=== PATIENT | female | born 1955 | race African-American/Black ===

== ENCOUNTER 2019-06-17 05:52 | Inpatient (IN) | payer OTHER, BC ==
[2019-06-09 10:27] VITALS: BMI 34.7
[~2019-06-17 05:52] MED LIST: CEFAZOLIN 2 GM in DEXTROSE 5%-WATER - 50 ML IVPB ONE; TRANEXAMIC ACID 1000 MG/10 ML VIAL IVPUSH ONE
[2019-06-17] MEDS ORDERED: BUPIVACAINE HCL/PF 0.5% (5 MG/ML) 30 ML VIAL IJ ONE ×2 (06:48→08:21)
[2019-06-17] MEDS ORDERED: EPINEPHrine/PF 1 MG/1 ML (1:1,000) AMPULE ONE ×3 (06:48→08:21)
[2019-06-17] MEDS ORDERED: MIDAZOLAM HCL 2 MG/2 ML SINGLE DOSE VIAL ONE ×3 (06:48→08:44)
[2019-06-17] MEDS ORDERED: oxyCODONE HCL 10 MG SUSTAINED ACTING TABLET ONE (06:58)
[2019-06-17] MEDS ORDERED: VANCOMYCIN 1,250 MG in DEXTROSE 5%-WATER - 250 ML IVPB ONE (06:58)
[2019-06-17] MEDS ORDERED: PROPOFOL 20 ML ONE ×6 (07:06→14:26)
[2019-06-17] MEDS ORDERED: SUCCINYLCHOLINE CHLORIDE 200 MG/10 ML SYRINGE ONE (07:06)
[2019-06-17] MEDS ORDERED: VANCOMYCIN 1,000 MG VIAL (RESTRICTED TO ID ONLY) ONE (07:07)
[2019-06-17] MEDS ORDERED: BUPIVACAINE HCL/PF 0.5% (5MG/ML) 10 ML VIAL ONE ×2 (07:09→09:09)
[2019-06-17] MEDS: oxyCODONE HCL 10 MG SUSTAINED ACTING TABLET PO ONE ×2 (07:30→16:59)
--- NOTE | 2019-06-17 07:45 | HP ---
History & Physical Update - History History: No Change - Physical Physical: No Change - Assessment Assessment: No Change - Plan Plan: No Change (since visit on 05/27/19 with PCP)
[2019-06-17] MEDS ORDERED: HEPARIN NA (PORCINE) 5,000 UNITS/ML 1ML VIAL ONE (08:03)
[2019-06-17] MEDS ORDERED: ceFAZolin SODIUM 1 GM VIAL ONE ×2 (09:02→12:39)
[2019-06-17] MEDS ORDERED: TRANEXAMIC ACID 1000 MG/10 ML VIAL ONE ×2 (09:02→10:17)
[2019-06-17] MEDS ORDERED: ePHEDrine SULFATE 50 MG/1 ML AMPULE ONE (09:26)
[2019-06-17] MEDS ORDERED: ALBUTEROL SO4 8 GM HFA INHALER IH PRN (12:51)
--- NOTE | 2019-06-17 12:54 | HP ---
CHIEF COMPLAINT: PCP: HISTORY OF PRESENT ILLNESS: ER course was notable for: (1) (2) (3) Recent Travel: PAST MEDICAL HISTORY: PAST SURGICAL HISTORY: Social History: Smoking: Alcohol: Drugs: Allergies No Known Drug Allergies Allergy (Verified 06/09/19 10:11) HOME MEDICATIONS: Home Medications Medication Instructions Recorded Albuterol Sulfate Inhaler - 2 inh PO Q4H PRN 06/09/19 [Ventolin Hfa Inhaler -] Atorvastatin Ca [Lipitor] 20 mg PO DAILY 06/09/19 Calcium Carbonate/Vitamin D3 1 each PO DAILY 06/09/19 [Calcium 500 + Vit D3 400 Tab] Fluticasone/Vilanterol [Breo 1 each IH BID 06/09/19 Ellipta 100-25 Mcg INH] Furosemide 20 mg PO DAILY 06/09/19 Gabapentin 300 mg PO BID 06/09/19 Ibuprofen 200 mg PO ASDIR PRN 06/09/19 Losartan/Hydrochlorothiazide 1 each PO DAILY 06/09/19 [Losartan-Hctz 100-25 mg Tab] Omalizumab [Xolair] 300 mg SQ MONTHLY 06/09/19 traZODone HCL [Trazodone HCl] 100 mg PO HS 06/09/19 REVIEW OF SYSTEMS CONSTITUTIONAL: Absent: fever, chills, diaphoresis, generalized weakness, malaise, loss of appetite, weight change HEENT: Absent: rhinorrhea, nasal congestion, throat pain, throat swelling, difficulty swallowing, mouth swelling, ear pain, eye pain, visual changes CARDIOVASCULAR: Absent: chest pain, syncope, palpitations, irregular heart rate, lighth eadedness, peripheral edema RESPIRATORY: Absent: cough, shortness of breath, dyspnea with exertion, orthopnea, wheezing, stridor, hemoptysis GASTROINTESTINAL: Absent: abdominal pain, abdominal distension, nausea, vomiting, diarrhea, constipation, melena, hematochezia GENITOURINARY: Absent: dysuria, frequency, urgency, hesitancy, hematuria, flank pain, genital pain MUSCULOSKELETAL: Absent: myalgia, arthralgia, joint swelling, back pain, neck pain SKIN: Absent: rash, itching, pallor HEMATOLOGIC/IMMUNOLOGIC: Absent: easy bleeding, easy bruising, lymphadenopathy, frequent infections ENDOCRINE: Absent: unexplained weight gain, unexplained weight loss, heat intolerance, cold intolerance NEUROLOGIC: Absent: headache, focal weakness or paresthesias, dizziness, unsteady gait, seizure, mental status changes, bladder or bowel incontinence PSYCHIATRIC: Absent: anxiety, depression, suicidal or homicidal ideation, hallucinations. PHYSICAL EXAMINATION Vital Signs - 24 hr 06/17/19 06:52 Temperature 98.8 F Pulse Rate 80 Respiratory 18 Rate Blood Pressure 141/94 GENERAL: Awake, alert, and fully oriented, in no acute distress. HEAD: Normal with no signs of trauma. EYES: Pupils equal, round and reactive to light, extraocular movements intact, sclera anicteric, conjunctiva clear. No lid lag. EARS, NOSE, THROAT: Ears normal, nares patent, oropharynx clear without exudates. Moist mucous membranes. NECK: Normal range of motion, supple without lymphadenopathy, JVD, or masses. LUNGS: Breath sounds equal, clear to auscultation bilaterally. No wheezes, and no crackles. No accessory muscle use. HEART: Regular rate and rhythm, normal S1 and S2 without murmur, rub or gallop. ABDOMEN: Soft, nontender, not distended, normoactive bowel sounds, no guarding, no rebound, no masses. No hepatomegaly or splenomegaly. MUSCULOSKELETAL: Normal range of motion at all joints. No bony deformities or tenderness. No CVA tenderness. UPPER EXTREMITIES: 2+ pulses, warm, well-perfused. No cyanosis. No clubbing. No peripheral edema. LOWER EXTREMITIES: 2+ pulses, warm, well-perfused. No calf tenderness. No peripheral edema. NEUROLOGICAL: Cranial nerves II-XII intact. Normal speech. Normal gait. PSYCHIATRIC: Cooperative. Good eye contact. Appropriate mood and affect. SKIN: Warm, dry, normal turgor, no rashes or lesions noted, normal capillary refill. ASSESSMENT/PLAN:
--- NOTE | 2019-06-17 13:49 | PN ---
Progress Note (short form) - Note Progress Note: Pre-op Block note: Pt. positioned and prepped in the holding area. Right side marked and time out conducted. Midazolam 4mg given in divided doses. Pt. Lido 1% local infiltrate at L2 paravertebral level. 22G Tuohy inserted negative aspiration, bupiv 0.5% with epi 100mcg injected 5 ml at a time with negative aspiration after each 5ml given. Pt. placed supine. L2 paravertebral uneventful. After block was placed I realized they were operating on the patient's left hip and I blocked the right hip. I informed the surgeon and it was decided to re-do the block on the correct side. Pt . will be informed.
[2019-06-17] MEDS ORDERED: MAGNESIUM HYDROX 2400MG/30ML ORAL SUSPENSION 30 ML CUP PO PRN (14:07)
[2019-06-17] MEDS ORDERED: MAG HYDROX/AL HYDROX/SIMETH 30 ML UNIT-DOSE CUP PO PRN (14:07)
[2019-06-17] MEDS ORDERED: ONDANSETRON 4 MG/2 ML VIAL IVPUSH PRN ×2 (14:07→15:17)
[2019-06-17] MEDS ORDERED: LACTATED RINGERS SOLUTION 1,000 ML IV SCH (14:15)
--- NOTE | 2019-06-17 14:15 | PN ---
Progress Note (short form) - Note Progress Note: S/P L Revision ESSIE POD#0 - Pain control. -DVT PPx: -Chemical: ASA 81 mg po BID x 6 weeks -Mechanical: LOGAN's, SCD's -Incentive Spirometry. -PT/OT/Rehab, OOB. -WBAT LLE -Posterior L hip precautions. -f/u drain output. -f/u am labs. -f/u post-op TOV. -Hip abduction pillow -Care per medical hospitalist team. -Discharge planning: f/u [facility] office internal medicine nurse practitioner for appointment: -Will follow. Bunny Neal MD (Orthopaedic Surgery)
--- NOTE | 2019-06-17 15:09 | OP ---
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 -femoral stem. -femoral head. -poly cup. -acetabular cup Estimated Blood Loss (mls): 600 Drains & Tubes with Location: hemavac left hip Drains, Volume Out (mls): 300 (vogel) Blood Volume Replaced (mls): 250 (cell saver) Fluid Volume Replaced (mls): 1,900 Operative Report Dictated: Yes
[2019-06-17] MEDS ORDERED: IPRATROPIUM BR 0.02% 0.5 MG/2.5 ML VIAL.NEB. NEB ONE (15:12)
[2019-06-17] MEDS ORDERED: ALBUTEROL SO4 0.083% IH SOL 2.5 MG/3 ML VIAL.NEB. NEB ONE (15:12)
[2019-06-17] MEDS ORDERED: HYDROmorphone HCL CARPU-JECT 1 MG/1 ML DISP.SYRIN IVPUSH PRN ×2 (15:17→16:07)
[2019-06-17] MEDS ORDERED: PROMETHAZINE HCL 25 MG/1 ML VIAL IVPUSH PRN (15:17)
[2019-06-17] MEDS ORDERED: ALBUTEROL SO4 0.5 % INH SOLN 2.5 MG/0.5 ML VIAL.NEB. NEB ONE (15:19)
[2019-06-17] MEDS ORDERED: HYDROmorphone HCL 0.5 MG/0.5 ML SYRINGE ONE (15:51)
[2019-06-17] MEDS: ACETAMINOPHEN 325 MG TABLET (FP) PO SCH ×3 (16:03→20:34)
[2019-06-17] MEDS: oxyCODONE HCL 5 MG TABLET PO PRN ×2 (16:03→17:29)
[2019-06-17] MEDS: ceFAZolin 2 GRAM PREMIX BAG IVPB SCH ×2 (16:59→19:46)
[2019-06-17] MEDS ORDERED: morphine CARPU-JECT 2 MG/1 ML DISP.SYRIN IVPUSH PRN (18:10)
--- NOTE | 2019-06-17 18:21 | HP ---
Admitting History and Physical - Primary Care Physician PCP: Yusuf Odom - Admission Chief Complaint: s/p Revision left total hip arthroplasty History of Present Illness: 63 year old F with h/o HLD, HTN, persistent asthma amd vitamin D def presents to [facility] for elective Revision left total hip arthroplasty. Pt reports fall in 2009 which resulted in surgical intervention with pinning. Over the last 10 years she has experienced worsening left hip pain which interferes with her ambulation and results in her being mostly homebound. She was being closely followed by Dr. Neal and diagnosed with Failure of left total hip arthroplasty. Today, 06/17/19. she is s/p Revision left total hip arthroplasty with Spinal, Local (block with sedation). She is admitted to tele unit for continued post-op observation and management. History Source: Patient Limitations to Obtaining History: Language Barrier - Past Medical History Cardiovascular: Yes: HTN, Hyperlipdemia Pulmonary: Yes: Asthma Reproductive: Yes: Postmenopausal Musculoskeletal: Yes: Chronic low back pain, Osteoarthritis (left hip) - Past Surgical History Past Surgical History: Yes: Appendectomy Additional Past Surgical History: Left salpingectomy right hip athroplasty 2001 Left hip arthroplasty 2010 pelvic fracture - Advance Directives Advance Directives: Yes: Health Care Proxy (Flavio Cunningham _ brother Common Law : Aldo Daily [phone]) - Smoking History Smoking history: Former smoker Have you smoked in the past 12 months: No Aproximately how many cigarettes per day: 5 If you are a former smoker, when did you quit?: 1998 - Alcohol/Substance Use Hx Alcohol Use: No History of Substance Use: reports: None - Social History Usual Living Arrangement: Yes: With Spouse ADL: Family Assistance Occupation: Disabled History of Recent Travel: No Home Medications - Allergies Allergies/Adverse Reactions: Allergies Allergy/AdvReac Type Severity Reaction Status Date / Time No Known Drug Allergies Allergy Verified 06/09/19 10:11 - Home Medications Home Medications: Ambulatory Orders Albuterol Sulfate Inhaler - [Ventolin Hfa Inhaler -] 2 inh PO Q4H PRN 06/09/19 Atorvastatin Ca [Lipitor] 20 mg PO DAILY 06/09/19 Calcium Carbonate/Vitamin D3 [Calcium 500 + Vit D3 400 Tab] 1 each PO DAILY Fluticasone/Vilanterol [Breo Ellipta 100-25 Mcg INH] 1 each IH BID 06/09/19 Furosemide 20 mg PO DAILY 06/09/19 Gabapentin 300 mg PO BID 06/09/19 Ibuprofen 200 mg PO ASDIR PRN 06/09/19 Losartan/Hydrochlorothiazide [Losartan-Hctz 100-25 mg Tab] 1 each PO DAILY 06/09 Omalizumab [Xolair] 300 mg SQ MONTHLY 06/09/19 traZODone HCL [Trazodone HCl] 100 mg PO HS 06/09/19 Family Medical History Other Family History: Mother (77) Heart Disease, asthma. Father alive (90) DMII. Brother alive (68) DMII. Sister alive (61) asthma Review of Systems - Review of Systems Constitutional: reports: No Symptoms Eyes: reports: No Symptoms HENT: reports: No Symptoms Neck: reports: No Symptoms Cardiovascular: reports: No Symptoms Respiratory: reports: No Symptoms Gastrointestinal: reports: No Symptoms Genitourinary: reports: No Symptoms Breasts: reports: No Symptoms Reported Musculoskeletal: reports: Joint Pain Neurological: reports: No Symptoms Endocrine: reports: No Symptoms Hematology/Lymphatic: reports: No Symptoms Psychiatric: reports: No Symptoms Physical Examination Vital Signs: Vital Signs Temperature 97.6 F 06/17/19 17:17 Pulse Rate 64 06/17/19 17:17 Respiratory Rate 19 06/17/19 17:17 Blood Pressure 96/61 06/17/19 17:17 O2 Sat by Pulse Oximetry (%) 98 06/17/19 17:17 Constitutional: Yes: Well Nourished, No Distress, Calm Eyes: Yes: Conjunctiva Clear, PERRL HENT: Yes: Atraumatic, Normocephalic Neck: Yes: Supple, Trachea Midline Cardiovascular: Yes: Regular Rate and Rhythm Respiratory: Yes: Regular, CTA Bilaterally Gastrointestinal: Yes: Normal Bowel Sounds, Soft, Abdomen, Obese ...Rectal Exam: Yes: Deferred Renal/: Yes: M[place]onnell Present Musculoskeletal: Yes: Other (Left hip with clean dry dressing, LENA drain in place ) Extremities: Yes: WNL Edema: No Peripheral Pulses WNL: Yes Peripheral Pulses: Left Radial: 2+, Right Radial: 2+ Integumentary: Yes: WNL Wound/Incision: Yes: Clean/Dry, Dressing Dry and Intact (Left hip) Neurological: Yes: Alert, Oriented ...Motor Strength: WNL Psychiatric: Yes: Alert, Oriented Imaging - Results X-ray: Report Reviewed (Left hip Xray 06/17/19 Left hip: Postop. An AP view the pelvis and a single view of the left hip reveals a left hip replacement with soft tissue air and swelling. There is a right hip replacement which is old. A metallic plate projects over the left SI joint. There is soft tissue air about the left hip along with a drain. There may be a linear fracture involving the proximal shaft of the left hip. Correlation recommended. There are no prior studies for comparison. Reported By: Keanu Rodrigues MD 06/17/19 [id number]) Problem List - Problems (1) HTN (hypertension) Assessment/Plan: lasix 20mg daily continue losartan-HCTZ cardiac diet Code(s): I10 - ESSENTIAL (PRIMARY) HYPERTENSION (2) Hyperlipidemia Assessment/Plan: continue lipitor Code(s): E78.5 - HYPERLIPIDEMIA, UNSPECIFIED (3) Asthma Assessment/Plan: continue symbicort and Albuterol PRN nebs PRN wheezing Code(s): J45.909 - UNSPECIFIED ASTHMA, UNCOMPLICATED (4) Depression Assessment/Plan: hold trazodone due to sedation r/t oxycodone and morphine Code(s): F32.9 - MAJOR DEPRESSIVE DISORDER, SINGLE EPISODE, UNSPECIFIED (5) History of total left hip arthroplasty Assessment/Plan: pain control with oxycodone and oxycontin SR IV morphine PRN severe pain -f/u drain output. -f/u am labs. -f/u post-op TOV. -Hip abduction pillow -Discharge planning: f/u [facility] [place] office lead mason tender for appointment: Code(s): Z96.642 - PRESENCE OF LEFT ARTIFICIAL HIP JOINT (6) Prophylactic measure Assessment/Plan: - bowel regimen -DVT PPx: -Chemical: ASA 81 mg po BID x 6 weeks -Mechanical: LOGAN's, SCD's -Incentive Spirometry. -PT/OT/Rehab, OOB. -WBAT LLE -Posterior L hip precautions. Code(s): Z29.9 - ENCOUNTER FOR PROPHYLACTIC MEASURES, UNSPECIFIED Assessment/Plan Code status: Full Dispo: REhab - pt prefers [facility] Visit type - Emergency Visit Emergency Visit: No - New Patient This patient is new to me today: Yes Date on this admission: 06/17/19 - Critical Care Critical Care patient: No
[2019-06-17] MEDS: FERROUS SO4 325 MG TABLET (FP) PO SCH (18:45)
[2019-06-17] MEDS ORDERED: ALBUTEROL SO4 2.5/IPRATROPIUM 0.5 INH SOL 3 ML VIAL.NEB. NEB PRN (18:48)
[2019-06-17] MEDS ORDERED: KETOROLAC TROMETHAMINE 30 MG/1 ML VIAL IVPUSH ONE (19:09)
[2019-06-17] MEDS ORDERED: VANCOMYCIN 1 GRAM (PRE-DOCKED) 1,000 MG/250 ML BAG IVPB ONE (20:00)
[2019-06-17] MEDS: oxyCODONE HCL 10 MG SUSTAINED ACTING TABLET PO SCH (21:03)
[2019-06-17] MEDS: GABAPENTIN 300 MG CAPSULE PO SCH (21:03)
[2019-06-17] MEDS: ASPIRIN 81 MG CHEWABLE TABLETS PO SCH (21:03)
[2019-06-17] MEDS: ASCORBIC ACID 500 MG TABLET (FP) PO SCH (21:03)
[2019-06-17] MEDS: SENNOSIDES/DOCUSATE COMBO (SENNA PLUS) TABLET (UD) PO SCH (21:03)
[2019-06-17] MEDS: BUDESONIDE/FORMETEROL FUMARATE 160/4.5 mcg INHALER IH SCH (21:05)
[2019-06-17] MEDS ORDERED: GABAPENTIN 300 MG CAPSULE PO SCH (22:00)
[2019-06-18] MEDS: oxyCODONE HCL 5 MG TABLET PO PRN ×6 (00:45→23:02)
[2019-06-18] MEDS: ceFAZolin 2 GRAM PREMIX BAG IVPB SCH (01:18)
[2019-06-18] MEDS: ACETAMINOPHEN 325 MG TABLET (FP) PO SCH ×4 (02:55→21:05)
--- NOTE | 2019-06-18 07:40 | PN ---
Progress Note (short form) - Note Progress Note: ORTHOPAEDIC SURGERY POD #1 s/p revision of left THR No acute events since surgery per RN notes. Patient is akert. Hasn't been oob yet. C/o incisional tenderness. Adequate pain control w/ meds ordered. Using her incentive spirometer as directed. Hip abduction pillow in place. Denies n/v/f/c, CP, palpitations, SOB, HOOKS, numbness/tingling to LLE Last Vital Signs Temp Pulse Resp BP Pulse Ox 97.8 F 80 18 107/55 L 93 L 06/18/19 01:00 06/18/19 01:00 06/18/19 01:00 06/18/19 01:00 06/18/19 01:00 Gen: alert. nad. LLE: aquacel dressing c/d/i (minor staining/old to distal aspect of dressing). No palpable hematoma. Drain on self suction 80 ml sanguinous recorded (RN reports verbally that another 200 emptied but not recorded yet). TEDs/SCDs bilat. All compartments soft. Palpable DP/PT. Problem List - Problems (1) HTN (hypertension) Assessment/Plan: POD #1 s/p revision left total hip arthroplasty -Pain control -DVT PPx: ASA 81 mg po BID x 6 weeks; TEDs/SCDs -Cont incentive spirometer -OOB w/ PT BID -WBAT LLE -Posterior Left hip precaution -Monitor/record drain output q shift -DC vogel once patient can be transferred to chair -f/u LABs -DC planning to REHAB tomorrow Code(s): I10 - ESSENTIAL (PRIMARY) HYPERTENSION (2) Asthma Code(s): J45.909 - UNSPECIFIED ASTHMA, UNCOMPLICATED (3) Depression Code(s): F32.9 - MAJOR DEPRESSIVE DISORDER, SINGLE EPISODE, UNSPECIFIED (4) History of total left hip arthroplasty Code(s): Z96.642 - PRESENCE OF LEFT ARTIFICIAL HIP JOINT
[2019-06-18 09:00] LABS: HEMATOCRIT 29.1 % (32.4-45.2); HEMOGLOBIN 9.6 GM/dl (10.7-15.3); MCH 31.4 pg (25.7-33.7); MCHC 33.1 g/dl (32.0-36.0); MEAN CELL VOLUME 94.9 fl (80-96); MEAN PLT VOLUME 6.6 fl (7.5-11.1); PLATELET COUNT 246 K/MM3 (134-434); RBC 3.06 M/mm3 (3.60-5.2); RDW 12.7 % (11.6-15.6); WHITE BLOOD COUNT 8.1 K/mm3 (4.0-10.8)
[2019-06-18] MEDS: GABAPENTIN 300 MG CAPSULE PO SCH ×2 (09:00→21:06)
[2019-06-18] MEDS: PANTOPRAZOLE 40 MG TABLET PO SCH (09:00)
[2019-06-18] MEDS: ATORVASTATIN CA 20 MG TABLET (FP) PO SCH (09:00)
[2019-06-18] MEDS: MULTIVITAMINS (DAILY MVI) TABLET (FP) PO SCH (09:01)
[2019-06-18] MEDS: FERROUS SO4 325 MG TABLET (FP) PO SCH ×2 (09:01→16:44)
[2019-06-18] MEDS: SENNOSIDES/DOCUSATE COMBO (SENNA PLUS) TABLET (UD) PO SCH ×2 (09:01→21:05)
[2019-06-18] MEDS: ASPIRIN 81 MG CHEWABLE TABLETS PO SCH ×2 (09:01→21:06)
[2019-06-18] MEDS: ASCORBIC ACID 500 MG TABLET (FP) PO SCH ×2 (09:02→21:06)
[2019-06-18] MEDS: oxyCODONE HCL 10 MG SUSTAINED ACTING TABLET PO SCH (09:03)
[2019-06-18] MEDS: LOSARTAN 50MG/HCTZ 12.5MG 1 TAB (FP) PO SCH (09:07)
[2019-06-18] MEDS: FUROSEMIDE 20 MG TABLET (FP) PO SCH (09:08)
--- NOTE | 2019-06-18 09:53 | PN ---
Physical Exam: SUBJECTIVE: Patient seen and examined at bedside. Pain is "20/10". OBJECTIVE: Vital Signs Period Temp Pulse Resp BP Sys/Miranda Pulse Ox Last 24 Hr 97.5 F-98.6 F 64-89 11-20 96-131/55-97 93-100 GENERAL: The patient is awake, alert, and fully oriented. No apparent distress. LUNGS: Breath sounds equal, clear to auscultation bilaterally HEART: Regular rate and rhythm, S1, S2 ABDOMEN: Soft, nontender, nondistended LLE: Surgical dressing c/d/i; +Hemovac drain; +flex/extend toes; sensory intact NEUROLOGICAL: Cranial nerves II through XII grossly intact. Normal speech, gait not observed. Active Medications Generic Name Dose Route Start Last Admin Trade Name Freq PRN Reason Stop Dose Admin Acetaminophen 650 mg 06/17/19 15:30 06/18/19 09:03 Tylenol - PO 06/20/19 15:29 650 mg Q6H DEON Administration Al Hydroxide/Mg Hydroxide 30 ml 06/17/19 14:07 Mylanta Oral Suspension - PO Q4H PRN DYSPEPSIA Albuterol Sulfate 2 puff 06/17/19 12:51 Ventolin Hfa Inhaler - IH Q4H PRN WHEEZING Albuterol/Ipratropium 1 amp 06/17/19 18:48 06/18/19 02:59 Duoneb - NEB 1 amp Q6H PRN Administration SHORTNESS OF BREATH Ascorbic Acid 500 mg 06/17/19 22:00 06/18/19 09:02 Vitamin C - PO 500 mg BID DEON Administration Aspirin 81 mg 06/17/19 22:00 06/18/19 09:01 Asa - PO 81 mg BID DEON Administration Atorvastatin Calcium 20 mg 06/18/19 10:00 06/18/19 09:00 Lipitor - PO 20 mg DAILY DEON Administration Budesonide/Formoterol Fumarate 2 puff 06/17/19 22:00 06/17/19 21:05 Symbicort 160/4.5mcg - IH Not Given BID DEON Ferrous Sulfate 325 mg 06/17/19 17:30 06/18/19 09:01 Feosol - PO Not Given BIDWM DEON Furosemide 20 mg 06/18/19 10:00 06/18/19 09:08 Lasix - PO 20 mg DAILY DEON Administration Gabapentin 300 mg 06/17/19 22:00 06/18/19 09:00 Neurontin - PO 300 mg BID DEON Administration HCTZ/Losartan Potassium 2 tab 06/18/19 10:00 06/18/19 09:07 Hyzaar - PO 2 tab DAILY DEON Administration Magnesium Hydroxide 30 ml 06/17/19 14:07 Milk Of Magnesia - PO PRN PRN CONSTIPATION Morphine Sulfate 2 mg 06/17/19 18:10 06/17/19 18:32 Morphine Injection - IVPUSH 06/18/19 18:09 2 mg Q6H PRN Administration PAIN LEVEL 7 - 10 Multivitamins/Minerals/Vitamin C 1 tab 06/18/19 10:00 06/18/19 09:01 Tab-A-Vit - PO 1 tab DAILY DEON Administration Ondansetron HCl 4 mg 06/17/19 14:07 Zofran Injection IVPUSH Q6H PRN NAUSEA Oxycodone HCl 5 mg 06/17/19 15:17 06/17/19 17:29 Roxicodone - PO 5 mg Q3H PRN Administration PAIN LEVEL 1-5 Oxycodone HCl 10 mg 06/17/19 15:17 06/18/19 09:02 Roxicodone - PO 10 mg Q3H PRN Administration PAIN LEVEL 6-10 Oxycodone HCl 10 mg 06/17/19 22:00 06/18/19 09:03 Oxycontin - PO 06/20/19 15:17 10 mg BID DEON Administration Pantoprazole Sodium 40 mg 06/18/19 10:00 06/18/19 09:00 Protonix - PO 40 mg DAILY DEON Administration Senna/Docusate Sodium 2 tablet 06/17/19 22:00 06/18/19 09:01 Pericolace - PO 2 tablet BID DEON Administration Pre op BUN 13 Cr 0.73 Hgb 14.3 Intra op Ancef 2g; vanc 1g UOP 300ccs EBL 600ccs LR 1900ccs ASSESSMENT/PLAN: 63 year-old female with a PMH significant for HTN, HLD, asthma, s/p hip replacements x 2 (1999, 2014), now s/p revision left total hip arthroplasty with Dr. Neal on 06/17/2019. Revision left total hip arthroplasty --POD #1 --perioperative antibiotics per surgery --pain management with PO Meds --ASA 81mg BID --protonix --bowel regimen --incentive spirometry --Hemovac drain, monitor output FEN Fluids: PO intake adequate Electrolytes: replete as indicated Nutrition: regular diet DVT prophylaxis: OOB, ambulation, SCDs, TEDs, ASA 81mg BID Physical therapy Dispo: continues to require inpatient care. Full code. ISTOP The Drug Utilization Report below displays all of the controlled substance prescriptions, if any, that your patient has filled in the last twelve months. The information displayed on this report is compiled from pharmacy submissions to the Department, and accurately reflects the information as submitted by the pharmacies. This report was requested by: Lisa Christie | Reference #: [id number] There are no results for the search terms that you entered. Visit type - Emergency Visit Emergency Visit: No - New Patient This patient is new to me today: Yes Date on this admission: 06/18/19 - Critical Care Critical Care patient: No
[2019-06-18] MEDS ORDERED: PATIENT'S OWN MEDICATION (NON-FORMULARY) (Losartan/Hydrochlorothiazide [Losartan-Hctz 100- PO SCH (10:00)
--- NOTE | 2019-06-18 10:25 | PN ---
Progress Note (short form) - Note Progress Note: Anesthesia Post op/ Pain Pt seen and examined S:Alert and awake mild discomfort O: Vital Signs Temperature 97.9 F 06/18/19 09:00 Pulse Rate 89 06/18/19 09:00 Respiratory Rate 18 06/18/19 09:00 Blood Pressure 118/72 06/18/19 09:00 O2 Sat by Pulse Oximetry (%) 96 06/18/19 07:57 A/P Current Active Problems Asthma (Acute) Depression (Acute) HTN (hypertension) (Acute) History of total left hip arthroplasty (Acute) Hyperlipidemia (Acute) Prophylactic measure (Acute) s/p Left hip revision Doing well post op Continue current care Keanu Blanca MD
--- NOTE | 2019-06-18 10:40 | OP ---
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 OPERATION PERFORMED: 1. Extended trochanteric osteotomy. 2. Explant entire hip acetabulum and femur. 3. Revision left total hip arthroplasty (Yang). ([id number]) 4. Debridement of soft tissue and full capsulectomy, left hip. ANESTHESIA: Conscious sedation with spinal anesthesia and peripheral nerve block. ANTIBIOTICS GIVEN: Ancef 2 g, vancomycin 1 g preoperative; Ancef 2 g given intraoperatively. Thorough lavage throughout the procedure. BLOOD LOSS: Approximately 600 mL; 300 mL of blood were given back to the patient. OPERATION DETAILS: Patient correctly identified, brought into the operating room, placed supine on the operating table. Left lower extremity was prepped and draped in the routine manner with Betadine scrub solution, wiped off with alcohol. DuraPrep applied. Timeout was called. Imaging was available for intraoperative evaluation. The leg length preoperatively revealed shortening of the left lower extremity and extensive root of limb pain was noted preoperatively in the holding area when reassessed. This was with all hip movement. In this position, with the hip and knee flexed at 45 degrees, the old wound was opened. Skin and subcutaneous tissue were dissected directly down to the fascia. The fascia was opened. Fascial planes created and a Charnley retractor placed in the subfascial plane to hold the entire skin/subcutaneous complex out of harm's way. The hip abductor mechanism readily noted. Gao-Alfaro window was entered with digital palpation. This lined up with the trochanteric ridge. Using a Bovie, the Gao-Alfaro window was opened. Then, following this, just distal to the vastus ridge, extending to linea aspera posteriorly, and then extending distally in an L-shaped fashion, approximately 2-1/2 inches of lateral femoral cortex were exposed. The muscle was lifted and held out of harm's way with Hohmann retractors. An oscillating saw was utilized to make 2 longitudinal incisions distal to the trochanteric ridge as an extension tunnel for an extended trochanteric osteotomy. These were up transversely at about 1- 1/2 inches distal to the appropriate trochanteric ridge. A Gigli saw was placed around the superior aspect of the junction of the femoral neck and trochanter. The top part of the femoral bone bed was transected with the Gigli saw and up and linked up with the osteotomy cuts as mentioned above. Using an osteotome, the bone of the extended trochanteric osteotomy and the trochanter itself was gently teased off the femoral implant. Two Charnley pins were placed in the superolateral acetabular bone bed to hold the actual trochanter and hip abductor bone out of harm's way. Bone quality was good. All junctional tissue was resected. Tissue was sent to the lab for frozen section and reported back to the team that there were only 2 polymorphs per high-powered field, and we proceeded with the procedure accordingly. Once the entire junctional soft tissue elements were removed, this using sharp dissection with rongeurs as well as osteotomes, it was noted that bone had actually grown over the cup all the way right actually to the stem. This was excised appropriately to expose the rim of the cup. The hip was dislocated, and it was clearly noted that the cup wear caused aberrant movement of the femoral head within the confines of the cup. This was toggling and not congruent in its articulation. Anterior, posterior, and inferior retractors were utilized, together with Charnley pins, giving an excellent exposure of the acetabulum. The polyethylene was removed and using the [employer] automated cup remover device combined with gooseneck gouges, the cup was extricated. Some medial quadrilateral plate bone loss was encountered. Reaming was to size 60, and a size 60 Yang Tritanium cup inserted. The explant of the actual acetabular component consisted of removal of the polyethylene, followed by removal of the 2 screws and then cutting along the interface between the bone and the acetabular bone bed with this device. A partial quadrilateral bone loss. No other bone loss was noted, and this was a contained defect. Reaming was to size 60. A size 60 Yang Tritanium cup inserted. This was closed in 10 degrees anteverted, but prior to its insertion, some of the bony reamings that had been collected from the reamers were packed as a bone graft into the quadrilateral plate bone defect space. Solid press-fit fixation was achieved. Two screws were utilized into the acetabular bone bed. A 28-mm neutral polyethylene liner inserted. The cup was closed and about 10 degrees anteverted. The femur was explanted with great difficulty. This required flexible osteotomes as well as Gigli saw to be placed around the medial aspect of the stem. This was a brushed [place] stem with brushed titanium with solid bony ingrowth diffusely throughout. We had to literally cut the bone off the femoral component. No bone was lost. The old ceramic head was noted, all intact, and the entire implant extricated. At that point, reaming was to size 15 and a size 15 methodist modular stem inserted and a 30-mm body applied to the actual methodist stem. This was solidly fixed into position. Trialing was with a +4 3/8-mm head and brought about equal leg length on the table. The stem was placed in neutral position; that is no anteversion. The range of movement of the hip was excellent. Flexion to 110 degrees, internal rotation and adduction revealed complete stability and extension and external rotation. There was no anterior subluxation appropriately noted either. Solid diaphyseal fixation was achieved with the insertion of a conical-shaped stem. After all trialings were completed, the definitive prosthesis was inserted. Closure of the hip abductor muscles with No. 1 Vicryl, fascia 1 Vicryl interrupted sutures, subcutaneous 2 layers, one deep, one superficial all with No. 1 Vicryl. Skin ute. A 1/8-inch Hemovac subfascially placed. Operation was extremely difficult. This was because of the difficulty in explanting this because of the ingrown bone bed necessitating literally carving the bone off the implant surfaces, but the indication of this revision was sound in that there was extensive cup wear with early osteolysis involving the proximal medial aspect of the femur. The closure was reattachment of the trochanter with 4 cables. Solid fixation was achieved. The cables were seated anatomically. The extensor osteotomy keyed in anatomically, requiring no burying of bone from the actual trochanteric bone bed. The closure was as outlined above. Operation went extremely well apart from the difficulty. MD BRYANT Stafford/[id number] AMBERLY
[2019-06-18 12:52] LABS: CREATININE 0.8 mg/dl (0.55-1.3); POTASSIUM 4.3 mmol/L (3.5-5.1)
[2019-06-18 12:53] LABS: CALCIUM 7.9 mg/dl (8.5-10); MAGNESIUM 1.8 mg/dL (1.8-2.4)
[2019-06-18] MEDS: BUDESONIDE/FORMETEROL FUMARATE 160/4.5 mcg INHALER IH SCH (13:44)
--- NOTE | 2019-06-18 14:43 | PN ---
Progress Note (short form) - Note Progress Note: Spoke to the patient and the about injecting the right paravertebral space with local anesthesia initillay. They weren't bothered at all and the patient was very thankful for anesthesia care she received.
[2019-06-19] MEDS: oxyCODONE HCL 5 MG TABLET PO PRN ×6 (02:21→21:16)
[2019-06-19] MEDS: BUDESONIDE/FORMETEROL FUMARATE 160/4.5 mcg INHALER IH SCH ×3 (02:22→21:12)
[2019-06-19] MEDS: ACETAMINOPHEN 325 MG TABLET (FP) PO SCH ×4 (03:00→21:11)
[2019-06-19 07:46] LABS: HEMATOCRIT 29.6 % (32.4-45.2); HEMOGLOBIN 9.7 GM/dl (10.7-15.3); MCH 31.1 pg (25.7-33.7); MCHC 32.9 g/dl (32.0-36.0); MEAN CELL VOLUME 94.5 fl (80-96); MEAN PLT VOLUME 6.6 fl (7.5-11.1); PLATELET COUNT 274 K/MM3 (134-434); RBC 3.13 M/mm3 (3.60-5.2); RDW 12.8 % (11.6-15.6); WHITE BLOOD COUNT 8.9 K/mm3 (4.0-10.8)
--- NOTE | 2019-06-19 07:46 | PN ---
Progress Note (short form) - Note Progress Note: POD __2__, s/p ___Revision Left total hip replacement Pt seen and examined. Doing well post op. Pain well controlled. Has been oob ambulating with PT. Passing flatus. Tolerating diet. Voiding without issue. Denies cp/sob, n/v/d. GEN: A&0x3, NAD CV: Lungs: CTA b/l ABD: soft, non-distended, non-tender. Left hip: hemovac in place with ____25ml serosanguinous drainage in reservoir. Surgical dressing c/d/i. Compartments soft, no calf tenderness or swelling noted b/l. TEDs/SCDS in place b/l. 5/5 dorsi/plantar flexion b/l, 5/5 EHl/FHL b/l, SILT b/l les. Assessment/Plan: __63__y/o F/M with history of __Left hip__ OA now POD __2___ s /p L __Revision total hip replacement___. Pt doing well post-operatively. Cleared for discharge from Surgical standpoint. Afebrile, VSS. Pain controlled. -Pain control as ordered -DVT PPx: Chemical: ASA 81 mg po BID x 6 weeks, Mechanical: LOGAN's, SCD's -Incentive Spirometry -PT/OT/Rehab, OOB -WBAT LLE -Drain removed at bedside -f/u am labs -Home meds ordered as appropriate -Care per medical hospitalist team. Problem List - Problems (1) History of total left hip arthroplasty Code(s): Z96.642 - PRESENCE OF LEFT ARTIFICIAL HIP JOINT
--- NOTE | 2019-06-19 08:26 | DS ---
"Physical Exam: SUBJECTIVE: Patient seen and examined OBJECTIVE: Vital Signs Period Temp Pulse Resp BP Sys/Miranda Pulse Ox Last 24 Hr 97.9 F-99.1 F 80-95 18-18 101-118/55-72 95-97 PHYSICAL EXAM GENERAL: The patient is awake, alert, and fully oriented. No apparent distress. LUNGS: Breath sounds equal, clear to auscultation bilaterally HEART: Regular rate and rhythm, S1, S2 ABDOMEN: Soft, nontender, nondistended LLE: Surgical dressing c/d/i; +flex/extend toes; sensory intact NEUROLOGICAL: Cranial nerves II through XII grossly intact. Normal speech, gait not observed. LABS Laboratory Results - last 24 hr 06/18/19 06/18/19 06/19/19 06:45 06:45 06:56 WBC 8.1 8.9 RBC 3.06 L 3.13 L Hgb 9.6 L 9.7 L Hct 29.1 L 29.6 L MCV 94.9 94.5 MCH 31.4 31.1 MCHC 33.1 32.9 RDW 12.7 12.8 Plt Count 246 274 MPV 6.6 L 6.6 L Sodium 135 L Potassium 4.3 Chloride 100 Carbon Dioxide 28 Anion Gap 7 L BUN 10.0 Creatinine 0.8 Est GFR (CKD-EPI)AfAm 90.94 Est GFR (CKD-EPI)NonAf 78.46 Random Glucose 98 Calcium 7.9 L Magnesium 1.8 HOSPITAL COURSE: Date of Admission:06/17/19 Date of Discharge: 06/19/19 ASSESSMENT/PLAN: 63 year-old female with a PMH significant for HTN, HLD, asthma, s/p hip replacements x 2 (1999, 2014), now s/p revision left total hip arthroplasty with Dr. Neal on 06/17/2019. Revision left total hip arthroplasty --perioperative antibiotics per surgery --pain well-managed at time of discharge with PO meds --ASA 81mg BID x 6 weeks Minutes to complete discharge: 35 Discharge Summary Problems reviewed: Yes Reason For Visit: [facility] LOOSENING OF LEFT HIP Current Active Problems Asthma (Acute) Depression (Acute) HTN (hypertension) (Acute) History of total left hip arthroplasty (Acute) Hyperlipidemia (Acute) Prophylactic measure (Acute) Condition: Improved - Instructions Diet, Activity, Other Instructions: Dr. Neal Discharge Instructions for Hip Replacement Post Operative Instructions Physical activity Physical Therapist will come to your home for the first 5 days. You will be set up with outpatient PT at your first post-operative visit. Use assistive devices for ambulation at all times. Weight bearing as tolerated on your surgical side. Do not drive while taking narcotic medication. Wound care Leave your surgical dressing in place. Do not change the dressing until seen by your surgeon in the office. No baths or showers. Do not submerge your incision. Do not apply any ointments or lotions to your incision. Please call the office if your dressing is soiled/dirty or is falling off. Apply Graduated Compression Stockings (TEDS) to both lower extremities-remove daily for hygiene ONLY. Diet There are no dietary restrictions. Eat healthy, high-fiber foods. Drink 6 to 8 glasses of liquid each day. This will assist in keeping your bowels are regular. Pain management Any pain prescription medication ordered should be taken as prescribed for moderate to severe pain. Do not take additional Tylenol while taking Percocet. A prescription has been sent to your pharmacy for oxycodone. Take as directed. Posterior Hip Precautions: Do not cross the leg you had surgery on over your other leg. (Do not cross your legs.)Use an elevated toilet seat. Do not sit on low chairs or beds. Use purple pillow (abductor) when lying in bed. Take Aspirin 81 mg two times a day for a total of 6 weeks to prevent blood clots. A prescription has been sent to your pharmacy. If your insurance does not cover, buy it over the counter. Call Dr. Neal for any of the following: Severe pain not relieved by medication Fever of 101 or higher Excessive bleeding or drainage on dressing Inability to urinate If you experience chest pain or shortness of breath, please seek emergency care immediately. Please call the office at to confirm your post-op appointment for the week following surgery. ISTOP The Drug Utilization Report below displays all of the controlled substance prescriptions, if any, that your patient has filled in the last twelve months. The information displayed on this report is compiled from pharmacy submissions to the Department, and accurately reflects the information as submitted by the pharmacies. This report was requested by: Lisa Christie | Reference #: [id number] Referrals: Bunny Neal MD [Staff Physician] - Disposition: HOME - Home Medications Comprehensive Discharge Medication List: Ambulatory Orders Albuterol Sulfate Inhaler - [Ventolin Hfa Inhaler -] 2 inh PO Q4H PRN 06/09/19 Atorvastatin Ca [Lipitor] 20 mg PO DAILY 06/09/19 Calcium Carbonate/Vitamin D3 [Calcium 500 + Vit D3 400 Tab] 1 each PO DAILY 06/09/19 Fluticasone/Vilanterol [Breo Ellipta 100-25 Mcg INH] 1 each IH BID 06/09/19 Furosemide 20 mg PO DAILY 06/09/19 Gabapentin 300 mg PO BID 06/09/19 Ibuprofen 200 mg PO ASDIR PRN 06/09/19 Losartan/Hydrochlorothiazide [Losartan-Hctz 100-25 mg Tab] 1 each PO DAILY 06/09/19 Omalizumab [Xolair] 300 mg SQ MONTHLY 06/09/19 traZODone HCL [Trazodone HCl] 100 mg PO HS 06/09/19 Prescription Drug Monitoring Program (I-STOP) results: I-STOP reviewed and no issues identified This patient is new to me today: No Emergency Visit: No Critical Care patient: No - Discharge Referral Referred to [facility] Med P.C.: No"
--- NOTE | 2019-06-19 08:33 | DS ---
"Physical Exam: SUBJECTIVE: Patient seen and examined OBJECTIVE: Vital Signs Period Temp Pulse Resp BP Sys/Miranda Pulse Ox Last 24 Hr 97.9 F-99.1 F 80-95 18-18 101-118/55-72 95-97 PHYSICAL EXAM GENERAL: The patient is awake, alert, and fully oriented, in no acute distress. HEAD: Normal with no signs of trauma. EYES: PERRL, extraocular movements intact, sclera anicteric, conjunctiva clear. ENT: Ears normal, nares patent, oropharynx clear without exudates, moist mucous membranes. NECK: Trachea midline, full range of motion, supple. LUNGS: Breath sounds equal, clear to auscultation bilaterally, no wheezes, no crackles, no accessory muscle use. HEART: Regular rate and rhythm, S1, S2 without murmur, rub or gallop. ABDOMEN: Soft, nontender, nondistended, normoactive bowel sounds, no guarding, no rebound, no hepatosplenomegaly, no masses. EXTREMITIES: 2+ pulses, warm, well-perfused, no edema. NEUROLOGICAL: Cranial nerves II through XII grossly intact. Normal speech, gait not observed. PSYCH: Normal mood, normal affect. SKIN: Warm, dry, normal turgor, no rashes or lesions noted. LABS Laboratory Results - last 24 hr 06/18/19 06/18/19 06/19/19 06:45 06:45 06:56 WBC 8.1 8.9 RBC 3.06 L 3.13 L Hgb 9.6 L 9.7 L Hct 29.1 L 29.6 L MCV 94.9 94.5 MCH 31.4 31.1 MCHC 33.1 32.9 RDW 12.7 12.8 Plt Count 246 274 MPV 6.6 L 6.6 L Sodium 135 L Potassium 4.3 Chloride 100 Carbon Dioxide 28 Anion Gap 7 L BUN 10.0 Creatinine 0.8 Est GFR (CKD-EPI)AfAm 90.94 Est GFR (CKD-EPI)NonAf 78.46 Random Glucose 98 Calcium 7.9 L Magnesium 1.8 HOSPITAL COURSE: Date of Admission:06/17/19 Date of Discharge: 06/19/19 Discharge Summary Reason For Visit: [facility] LOOSENING OF LEFT HIP Current Active Problems Asthma (Acute) Depression (Acute) HTN (hypertension) (Acute) History of total left hip arthroplasty (Acute) Hyperlipidemia (Acute) Prophylactic measure (Acute) - Instructions Diet, Activity, Other Instructions: Dr. Neal Discharge Instructions for Hip Replacement Post Operative Instructions Physical activity Physical Therapist will come to your home for the first 5 days. You will be set up with outpatient PT at your first post-operative visit. Use assistive devices for ambulation at all times. Weight bearing as tolerated on your surgical side. Do not drive while taking narcotic medication. Wound care Leave your surgical dressing in place. Do not change the dressing until seen by your surgeon in the office. No baths or showers. Do not submerge your incision. Do not apply any ointments or lotions to your incision. Please call the office if your dressing is soiled/dirty or is falling off. Apply Graduated Compression Stockings (TEDS) to both lower extremities-remove daily for hygiene ONLY. Diet There are no dietary restrictions. Eat healthy, high-fiber foods. Drink 6 to 8 glasses of liquid each day. This will assist in keeping your bowels are regular. Pain management Any pain prescription medication ordered should be taken as prescribed for moderate to severe pain. Do not take additional Tylenol while taking Percocet. Posterior Hip Precautions: Do not cross the leg you had surgery on over your other leg. (Do not cross your legs.)Use an elevated toilet seat. Do not sit on low chairs or beds. Use purple pillow (abductor) when lying in bed. Take Aspirin 81 mg two times a day for a total of 6 weeks to prevent blood clots. Call Dr. Neal for any of the following: Severe pain not relieved by medication Fever of 101 or higher Excessive bleeding or drainage on dressing Inability to urinate If you experience chest pain or shortness of breath, please seek emergency care immediately. Please call the office at to confirm your post-op appointment for the week following surgery. ISTOP The Drug Utilization Report below displays all of the controlled substance prescriptions, if any, that your patient has filled in the last twelve months. The information displayed on this report is compiled from pharmacy submissions to the Department, and accurately reflects the information as submitted by the pharmacies. This report was requested by: Lisa Christie | Reference #: [id number] - Home Medications Comprehensive Discharge Medication List: Ambulatory Orders Albuterol Sulfate Inhaler - [Ventolin Hfa Inhaler -] 2 inh PO Q4H PRN 06/09/19 Atorvastatin Ca [Lipitor] 20 mg PO DAILY 06/09/19 Calcium Carbonate/Vitamin D3 [Calcium 500 + Vit D3 400 Tab] 1 each PO DAILY 06/09/19 Fluticasone/Vilanterol [Breo Ellipta 100-25 Mcg INH] 1 each IH BID 06/09/19 Furosemide 20 mg PO DAILY 06/09/19 Gabapentin 300 mg PO BID 06/09/19 Ibuprofen 200 mg PO ASDIR PRN 06/09/19 Losartan/Hydrochlorothiazide [Losartan-Hctz 100-25 mg Tab] 1 each PO DAILY 06/09/19 Omalizumab [Xolair] 300 mg SQ MONTHLY 06/09/19 traZODone HCL [Trazodone HCl] 100 mg PO HS 06/09/19"
[2019-06-19] MEDS: FERROUS SO4 325 MG TABLET (FP) PO SCH ×3 (08:53→16:35)
[2019-06-19] MEDS: SENNOSIDES/DOCUSATE COMBO (SENNA PLUS) TABLET (UD) PO SCH ×2 (09:46→21:10)
[2019-06-19] MEDS: ATORVASTATIN CA 20 MG TABLET (FP) PO SCH (09:46)
[2019-06-19] MEDS: GABAPENTIN 300 MG CAPSULE PO SCH ×2 (09:47→21:11)
[2019-06-19] MEDS: ASCORBIC ACID 500 MG TABLET (FP) PO SCH ×2 (09:47→21:10)
[2019-06-19] MEDS: ASPIRIN 81 MG CHEWABLE TABLETS PO SCH ×2 (09:47→21:10)
[2019-06-19] MEDS: MULTIVITAMINS (DAILY MVI) TABLET (FP) PO SCH (09:47)
[2019-06-19] MEDS: LOSARTAN 50MG/HCTZ 12.5MG 1 TAB (FP) PO SCH (09:47)
[2019-06-19] MEDS: FUROSEMIDE 20 MG TABLET (FP) PO SCH (09:47)
[2019-06-19] MEDS: PANTOPRAZOLE 40 MG TABLET PO SCH (09:47)
--- NOTE | 2019-06-19 17:35 | PN ---
Progress Note (short form) - Note Progress Note: 63F s/p revision LEFT total hip replacement POD #2. Pain well controlled. No acute events overnight. Pt. denies overnight history of headaches, chest pain, shortness of breath, nausea, vomiting, chills, & sweats. (+) Voiding; (+) Flatus; (+) BM. Tolerating diet. (+) Walked with PT. All labs and vitals reviewed. PE: AAO x 3, NAD. R-Hip: Dressing C/D/I. NVI distally. A/P: 63F s/p revision LEFT total hip replacement POD #2. -Pain control. -DVT PPx: -Chemical: ASA 81mg PO BID x 6 weeks. -Mechanical: LOGAN's, SCD's. -Incentive spirometry q15 min. -PT/OT/Rehab, OOB. -WBAT LLE. -(+) Hip abduction pillow x 6 weeks when in bed. -(+) LEFT hip precautions. -Diet as tolerated. -Care per medical hospitalist & medical oncology teams. -Discharge planning: rehab; f/u [facility] office 7-10 days after hospital discharge; call for appointment; . -Will follow. Bunny Neal MD (Orthopaedic Surgery).
[2019-06-19] MEDS ORDERED: MAGNESIUM HYDROX 2400MG/30ML ORAL SUSPENSION 30 ML CUP PO ONE (18:57)
[2019-06-20] MEDS: oxyCODONE HCL 5 MG TABLET PO PRN (06:07)
[2019-06-20] MEDS: ACETAMINOPHEN 325 MG TABLET (FP) PO SCH ×2 (06:07→09:15)
[2019-06-20] MEDS: FERROUS SO4 325 MG TABLET (FP) PO SCH ×2 (07:28→07:29)
[2019-06-20 08:49] VITALS: PULSE 92; TEMP 97.9
[2019-06-20] MEDS: MULTIVITAMINS (DAILY MVI) TABLET (FP) PO SCH (09:12)
[2019-06-20] MEDS: GABAPENTIN 300 MG CAPSULE PO SCH (09:12)
[2019-06-20] MEDS: ASPIRIN 81 MG CHEWABLE TABLETS PO SCH (09:12)
[2019-06-20] MEDS: PANTOPRAZOLE 40 MG TABLET PO SCH (09:12)
[2019-06-20] MEDS: SENNOSIDES/DOCUSATE COMBO (SENNA PLUS) TABLET (UD) PO SCH (09:13)
[2019-06-20] MEDS: ATORVASTATIN CA 20 MG TABLET (FP) PO SCH (09:13)
[2019-06-20] MEDS: ASCORBIC ACID 500 MG TABLET (FP) PO SCH (09:14)
[2019-06-20] MEDS: BUDESONIDE/FORMETEROL FUMARATE 160/4.5 mcg INHALER IH SCH (09:14)
[2019-06-20 10:12] VITALS: BP 134/72
[2019-06-20] MEDS: FUROSEMIDE 20 MG TABLET (FP) PO SCH (10:13)
[2019-06-20] MEDS: LOSARTAN 50MG/HCTZ 12.5MG 1 TAB (FP) PO SCH (10:13)
--- NOTE | 2019-06-22 13:27 | PATH ---
Surgical Pathology Report Patient Name: DARIAN PIRES Med. Rec. #: [id number] /Age/Gender: 1955 (Age: 63) / F Account: [id number] Location: [facility] MED-SURG Taken: 06/17/2019 Received: 06/17/2019 Reported: 06/22/2019 Physicians: Bunny Neal M.D. Specimen(s) Received A: LEFT TOTAL HIP CAPSULE B: LEFT HIP EXPLANT Clinical History Left total hip revision Intraoperative Consult Diagnosis Left hip capsule, frozen section: Up to 2 neutrophils in a call center support representative high power field (HPF) in call center support representative tissue. Usman Kilgore, 06/17/19 Final Diagnosis A. CAPSULE, LEFT HIP, EXCISION: FIBROCOLLAGENOUS TISSUE SHOWING RARE (1-2) NEUTROPHILS IN RARE HIGH POWER ALEXANDER (HPFs). B. EXPLANT, LEFT HIP: HARDWARE, DESCRIBED (GROSS EXAMINATION ONLY). Electronically Signed Rochelle Boyer M.D. Gross Description A. Received fresh for frozen section evaluation, labeled "left hip capsule" is a 4.5 x 2.6 x 0.6 cm portion of yellow and red-portillo fibroadipose tissue. Frozen section is performed on call center support representative tissue. Community Health Director sections are submitted in three cassettes as follows: FS1- frozen section residue; 2,3- additional call center support representative tissue. B. Received fresh labeled "left hip explant," are 4 metallic and white plastic portions of hardware ranging from 2.3-16.5 cm in greatest dimension, consistent with hip hardware. Also received within the same container are 2 blanton metallic screws measuring 1.6 and 3.0 cm in length. No soft tissue is present. No sections are submitted, gross only. AE/06/17/2019 ebram/06/17/2019
== END 2019-06-20 11:05 | disposition home or self-care (01) | DRG 467 ==
LOC: FM/S 05:52
PROVIDERS: ADMIT Orthopaedic Surgery Orthopaedic Surgery of the Spine; ATTEND Nurse Practitioner Family
PROC: 0SPE0JZ Removal of Synthetic Substitute from Left Hip Joint, Acetabular Surface, Open Approach (ICD-10-PCS; 2019-06-17)
PROC: 0SRE03Z Replacement of Left Hip Joint, Acetabular Surface with Ceramic Synthetic Substitute, Open Approach (ICD-10-PCS; principal; 2019-06-17 10:01)
DX: T84.091A Other mechanical complication of internal left hip prosthesis, initial encounter (principal); R71.0 Precipitous drop in hematocrit; M89.552 Osteolysis, left thigh; M16.12 Unilateral primary osteoarthritis, left hip; I10 Essential (primary) hypertension; E78.5 Hyperlipidemia, unspecified; E55.9 Vitamin D deficiency, unspecified; J45.909 Unspecified asthma, uncomplicated; M54.5 Low back pain; F32.9 Major depressive disorder, single episode, unspecified; Z29.9 Encounter for prophylactic measures, unspecified; Z87.891 Personal history of nicotine dependence
CPT/HCPCS: 36415; 73502-TC-LT-FY; 80048; 83735; 85027; 88300-TC; 88307-TC; 88331-TC; 94760; 97116-GP; 97163-GP; J1644

== ENCOUNTER 2021-12-20 08:00 | Inpatient (IN) | payer OTHER, BC ==
[2021-12-15 09:56] VITALS: BMI 34.7
[2021-12-20] MEDS ORDERED: ONDANSETRON 4 MG/2 ML VIAL IVPUSH PRN ×2 (13:57→18:27)
[2021-12-20] MEDS ORDERED: oxyCODONE HCL 10 MG SUSTAINED ACTING TABLET PO SCH ×3 (14:00→18:00)
[2021-12-20] MEDS ORDERED: BUPIVACAINE HCL 50 ML ONE (14:09)
[2021-12-20] MEDS ORDERED: LIDOCAINE HCL/PF 2% SDV 5ML VIAL ONE (14:10)
[2021-12-20] MEDS ORDERED: MIDAZOLAM HCL 2 MG/2 ML SINGLE DOSE VIAL ONE ×2 (14:10→14:26)
[2021-12-20] MEDS ORDERED: BUPIVACAINE HCL/PF 0.5% (5 MG/ML) 30 ML VIAL IJ ONE (14:12)
[2021-12-20] MEDS ORDERED: ceFAZolin SODIUM 1 GM VIAL ONE (14:33)
[2021-12-20] MEDS ORDERED: TRANEXAMIC ACID 1000 MG/10 ML VIAL ONE ×2 (14:33→16:07)
[2021-12-20] MEDS ORDERED: DEXAMETHASONE SOD PHOSPHATE 4 MG/1 ML VIAL ONE (14:33)
[2021-12-20] MEDS ORDERED: VANCOMYCIN 1,000 MG VIAL (RESTRICTED TO ID ONLY) ONE (14:33)
[2021-12-20] MEDS ORDERED: PROPOFOL 60 ML ONE (14:36)
[2021-12-20] MEDS ORDERED: ACETAMINOPHEN 500 MG TABLET (FP) PO SCH (15:00)
[2021-12-20] MEDS ORDERED: PROPOFOL 20 ML ONE (16:48)
[2021-12-20] MEDS ORDERED: BENZOIN/ALOE VERA/STORAX/TOLU 30 ML TINCTURE ONE (16:50)
[2021-12-20] MEDS ORDERED: ALBUTEROL SO4 2.5/IPRATROPIUM 0.5 INH SOL 3 ML VIAL.NEB. NEB ONE (17:43)
[2021-12-20] MEDS ORDERED: ACETAMINOPHEN 500 MG TABLET (FP) ONE (17:46)
[2021-12-20] MEDS ORDERED: oxyCODONE HCL 10 MG SUSTAINED ACTING TABLET ONE (17:56)
[2021-12-20] MEDS: ACETAMINOPHEN 500 MG TABLET (FP) PO SCH (17:58)
[2021-12-20] MEDS ORDERED: ONDANSETRON 4 MG/2 ML VIAL ONE (18:08)
[2021-12-20] MEDS ORDERED: FENTANYL CITRATE/PF 50 MCG/ML VIAL ONE ×2 (18:09→18:25)
[2021-12-20] MEDS ORDERED: MAGNESIUM HYDROX 2400MG/30ML ORAL SUSPENSION 30 ML CUP PO PRN (18:27)
[2021-12-20] MEDS ORDERED: ALBUTEROL SO4 HFA INHALER IH PRN (18:27)
[2021-12-20] MEDS ORDERED: MAG HYDROX/AL HYDROX/SIMETH 30 ML UNIT-DOSE CUP PO PRN (18:27)
[2021-12-20] MEDS ORDERED: LACTATED RINGERS SOLUTION 1,000 ML IV SCH (18:30)
[2021-12-20] MEDS ORDERED: OMALIZUMAB 150 MG/ML SQ SCH (18:30)
[2021-12-20] MEDS ORDERED: HYDROmorphone HCl 2 MG/ML VIAL SQ PRN (18:36)
[2021-12-20] MEDS: KETOROLAC TROMETHAMINE 30 MG/1 ML VIAL IVPUSH SCH ×2 (19:58→20:17)
[2021-12-20] MEDS: oxyCODONE HCL 5 MG TABLET PO PRN (20:16)
[2021-12-20] MEDS ORDERED: HYDROmorphone HCl 2 MG/ML VIAL IVPB ONE (21:50)
[2021-12-20] MEDS: traZODone HCL 100 MG TABLET (FP) PO SCH (22:07)
[2021-12-20] MEDS: ASPIRIN 81 MG CHEWABLE TABLETS PO SCH (22:07)
[2021-12-20] MEDS: CEFAZOLIN SODIUM 2 GM in DEXTROSE 5%-WATER 100 ML IVPB SCH (22:07)
[2021-12-20] MEDS: GABAPENTIN 300 MG CAPSULE PO SCH (22:07)
[2021-12-20] MEDS: BUDESONIDE/FORMETEROL FUMARATE 80/4.5 mcg INHALER IH SCH (22:08)
[2021-12-20] MEDS: SENNOSIDES/DOCUSATE COMBO (SENNA PLUS) TABLET (UD) PO SCH ×2 (22:08→22:10)
[2021-12-21] MEDS: ACETAMINOPHEN 500 MG TABLET (FP) PO SCH ×4 (00:18→17:18)
[2021-12-21] MEDS: CEFAZOLIN SODIUM 2 GM in DEXTROSE 5%-WATER 100 ML IVPB SCH ×2 (03:16→10:45)
[2021-12-21] MEDS: oxyCODONE HCL 5 MG TABLET PO PRN ×3 (03:17→17:18)
[2021-12-21 09:12] LABS: CALCIUM 8.9 mg/dl (8.5-10); CREATININE 0.9 mg/dl (0.55-1.3)
[2021-12-21] MEDS: ASPIRIN 81 MG CHEWABLE TABLETS PO SCH ×2 (09:31→21:06)
[2021-12-21] MEDS: GABAPENTIN 300 MG CAPSULE PO SCH ×2 (09:32→21:06)
[2021-12-21] MEDS: CELECOXIB 200 MG CAPSULE PO SCH ×2 (09:32→21:06)
[2021-12-21] MEDS: FUROSEMIDE 20 MG TABLET (FP) PO SCH (09:32)
[2021-12-21] MEDS: ATORVASTATIN CA 20 MG TABLET (FP) PO SCH (09:32)
[2021-12-21] MEDS: SENNOSIDES/DOCUSATE COMBO (SENNA PLUS) TABLET (UD) PO SCH ×2 (09:32→21:06)
[2021-12-21] MEDS: PANTOPRAZOLE 40 MG TABLET PO SCH (09:32)
[2021-12-21] MEDS: LOSARTAN POTASSIUM 50 MG TABLET PO SCH (09:32)
[2021-12-21] MEDS: HYDROCHLOROTHIAZIDE 25 MG TABLET (FP) PO SCH (09:32)
[2021-12-21 09:45] LABS: HEMATOCRIT 37.8 % (32.4-45.2); HEMOGLOBIN 13.4 G/dL (10.7-15.3); MCH 33.7 pg (25.7-33.7); MCHC 35.3 g/dl (32.0-36.0); MEAN CELL VOLUME 95.2 fl (80-96); MEAN PLT VOLUME 6.6 fl (7.5-11.1); PLATELET COUNT 321.7 10^3/uL (134-434); RBC 3.97 10^6/uL (3.60-5.2); RDW 13.8 % (11.6-15.6)
[2021-12-21] MEDS ORDERED: PATIENT'S OWN MEDICATION (NON-FORMULARY) (Losartan/Hydrochlorothiazide [Losartan-Hctz 100- PO SCH (10:00)
[2021-12-21] MEDS: BUDESONIDE/FORMETEROL FUMARATE 80/4.5 mcg INHALER IH SCH (10:03)
[2021-12-21] MEDS: FLUTICASONE/SALMETEROL 100 MCG/50 MCG DISKUS IH SCH ×2 (11:37→21:07)
[2021-12-21] MEDS: HYDROmorphone HCL/PF 1 MG/ML VIAL IVPB PRN ×2 (11:40→21:06)
[2021-12-21 11:43] LABS: CHOLESTEROL 187 mg/dl (50-200); HDL CHOLESTEROL 55 mg/dl (40-60); LDL CHOLESTEROL (ONLY DFH) 114 mg/dl (5-100); TRIGLYCERIDES 92 mg/dl (0-150)
[2021-12-21] MEDS: traZODone HCL 100 MG TABLET (FP) PO SCH (21:06)
[2021-12-22] MEDS: ACETAMINOPHEN 500 MG TABLET (FP) PO SCH ×3 (06:23→11:34)
[2021-12-22] MEDS: oxyCODONE HCL 5 MG TABLET PO PRN ×2 (06:24→15:14)
[2021-12-22] MEDS: GABAPENTIN 300 MG CAPSULE PO SCH (09:09)
[2021-12-22] MEDS: CELECOXIB 200 MG CAPSULE PO SCH (09:09)
[2021-12-22] MEDS: FLUTICASONE/SALMETEROL 100 MCG/50 MCG DISKUS IH SCH (09:09)
[2021-12-22] MEDS: ASPIRIN 81 MG CHEWABLE TABLETS PO SCH (09:09)
[2021-12-22] MEDS: FUROSEMIDE 20 MG TABLET (FP) PO SCH (09:09)
[2021-12-22] MEDS: SENNOSIDES/DOCUSATE COMBO (SENNA PLUS) TABLET (UD) PO SCH (09:10)
[2021-12-22] MEDS: HYDROCHLOROTHIAZIDE 25 MG TABLET (FP) PO SCH (09:10)
[2021-12-22] MEDS: LOSARTAN POTASSIUM 50 MG TABLET PO SCH (09:10)
[2021-12-22] MEDS: ATORVASTATIN CA 20 MG TABLET (FP) PO SCH (09:10)
[2021-12-22] MEDS: PANTOPRAZOLE 40 MG TABLET PO SCH (09:13)
[2021-12-22 14:29] VITALS: BP 97/64; PULSE 73; RESP 18; TEMP 98
== END 2021-12-22 16:33 | disposition home or self-care (01) | DRG 468 ==
LOC: FM/S 10:07
PROVIDERS: ADMIT Orthopaedic Surgery Orthopaedic Surgery of the Spine; ATTEND Orthopaedic Surgery Orthopaedic Surgery of the Spine
PROC: 0SRB0JZ Replacement of Left Hip Joint with Synthetic Substitute, Open Approach (ICD-10-PCS; 2021-12-20)
PROC: 0SPB0JZ Removal of Synthetic Substitute from Left Hip Joint, Open Approach (ICD-10-PCS; principal; 2021-12-20 15:03)
DX: T84.091A Other mechanical complication of internal left hip prosthesis, initial encounter (principal); Y83.8 Other surgical procedures as the cause of abnormal reaction of the patient, or of later complication, without mention of misadventure at the time of the procedure; I10 Essential (primary) hypertension; E78.5 Hyperlipidemia, unspecified; J45.909 Unspecified asthma, uncomplicated; K21.9 Gastro-esophageal reflux disease without esophagitis; M19.90 Unspecified osteoarthritis, unspecified site; F32.A Depression, unspecified; E66.9 Obesity, unspecified; Z68.34 Body mass index [BMI] 34.0-34.9, adult; R73.03 Prediabetes
CPT/HCPCS: 36415; 73502-TC-LT-FY; 80048; 80061; 83036; 85027; 94760; 97010-GP; 97116-GP; 97162-GP; C9803-CS; U0003; U0005